=== PATIENT | male | born 1930 | race Caucasian/White ===

== ENCOUNTER 2017-06-01 09:21 | Inpatient (IN) ==
[2017-06-01] MEDS ORDERED: KETOROLAC 30 MG/1 ML VIAL IV STA (09:40)
[2017-06-01] MEDS ORDERED: VANCOMYCIN INJ 1,000 MG in SODIUM CHLORIDE 0.9% 250 ML IV STA (09:40)
[2017-06-01] MEDS ORDERED: SULFAMETHOX/TRIMETHOPRIM 800-160 MG TABLET PO STA ×2 (09:40→09:47)
--- NOTE | 2017-06-01 09:43 | Emergency Department Note ---
Arrival - Arrival Chief Complaint: Extremity Problem Stated Complaint: sent over by Dr. Shaikh III ED Nursing Triage Note: Pt sent from Wound care for admission of infected right 4th toe. Mode of Arrival: Ambulatory Limitations: No Limitations Source: Patient Time Seen by Provider: 06/01/17 09:40 - History of Present Illness HPI Narrative: This 87-year-old white male presents on referral from wound clinic for evaluation of right foot cellulitis, in particular the fourth toe of the right foot. The patient states he has had significant problems with his right foot in the last 2 months with initially an early diabetic ulcer of the volar surface the right great toe that subsequently healed but then 2 weeks later has had persistent and progressive redness and inflammation of the fourth toe on the same foot. He denies systemic chills or fever. As noted the patient is diabetic but has had no significant lability to blood sugars with average daily sugars between 90 and 110. He is otherwise in no acute medical distress. Onset (ago): week(s) (Patient presents 5 weeks post onset of symptoms) Allergies/Adverse Reactions: Allergies Allergy/AdvReac Type Severity Reaction Status Date / Time apixaban [From Eliquis] AdvReac Severe bleeding Verified 01/09/17 15:06 Review of System - Review of System 12 point system: reviewed and no additional remarkable complaints except as stated - Review of System Constitutional: Present: as per HPI Musculoskeletal: Present: as per HPI Endocrine: Present: as per HPI Medical,Surgical,& Family Hx - Medical History Cardio: History of: Cardiac Dysrhythmia (Afib Dr Keyes), Hypertension Endocrine: History of: Diabetes Mellitus (NIDDM) - Social History Smoking Status: Never smoker Exam Physical Examination: GENERAL: Well developed, well nourished elderly white male in no acute distress. HEENT: Normocephalic. No trauma. Moist mucous membranes. EOMI. PERRLA. ENT NML NECK: Supple. No adenopathy. CARDIAC: Regular. No murmurs. Heart rate 86 CHEST: Clear to auscultation. No respiratory distress. O2 sat 99% ABDOMEN: Soft. Nontender. Active bowel sounds. EXTREMITIES: No trauma. Normal ROM. No pedal edema. Right foot demonstrates inflammatory edema associated with a cellulitis with redness and warmth at the base of the toes with a swollen red warm fourth great toe. Distal pulses are poorly palpable. SKIN: No diaphoresis. No rash. NEURO: Alert. Neuro intact. No focal deficits. Vital Signs: Vital Signs Temperature 97.0 F L 06/01/17 10:18 Pulse Rate 86 06/01/17 10:18 Respiratory Rate 18 06/01/17 10:18 Blood Pressure 117/83 06/01/17 10:18 O2 Sat by Pulse Oximetry 98 06/01/17 10:05 Course - Reevaluation(s) Reevaluation #1: Discussed with patient the need for hospitalization to try to salvage the foot. - Consultations Consultation #1: Discussed with Dr. Dumont who advised admission to medicine given there is no need for immediate surgical intervention with debridement or amputation at this time. Consultation #2: Discussed with Dr. Janes Garcia who will admit the patient for further evaluation and treatment in place of Dr. Anthony Cordova. Results - Labs CBC & BMP: 06/01/17 10:14 06/01/17 10:14 Labs: I have reviewed the laboratory and noted the elevated white blood cell count, renal azotemia, and elevated C-reactive protein - Diagnostic Findings Procedure: X-ray: image reviewed by me, report reviewed by me, pending (, Septic arthritis noted) Disposition Clinical Impression: Osteomyelitis right foot/fourth digit, Septic arthritis, Diabetes Case discussed with: patient Disposition: Still a Patient Condition: Guarded Time of Disposition: 11:46
--- NOTE | 2017-06-01 10:16 | XRay Report ---
History: Foot pain Date: 06/01/2017 Study: Right foot 3 views Comparison exam: No previous similar exam There is ill-defined lytic erosion along the lateral aspect of the distal aspect of the fourth proximal phalanx and proximal aspect of the fourth middle phalanx, centered at the level of the PIP joint, compatible with osteomyelitis and probable underlying septic arthritis. There is soft tissue swelling about the forefoot. There is soft tissue ulceration and soft tissue swelling plantar to the lateral aspect of the forefoot. No radiopaque foreign body is seen. There is mild osteophyte formation of the first MTP joint and interphalangeal joint. Impression: Evidence of osteomyelitis and probable underlying septic arthritis along the lateral aspect of the right fourth digit, centered at the PIP joint level PROCEDURE INTERPRETED AT [facility] DEPARTMENT OF RADIOLOGY Final Report Signed by: Dr. Duyen Fuchs
[2017-06-01] MEDS ORDERED: KETOROLAC 30 MG/1 ML VIAL ONE (10:23)
[2017-06-01] MEDS ORDERED: SULFAMETHOX/TRIMETHOPRIM 800-160 MG TABLET ONE (10:23)
[2017-06-01] MEDS ORDERED: VANCOMYCIN 1,000 MG VIAL ONE (10:23)
[2017-06-01] MEDS ORDERED: SODIUM CHLORIDE 0.9% 250 ML IV ONE (10:24)
[2017-06-01 10:25] LABS: Basophils # 0.1 10*3/uL (0.0-0.2); Basophils % 0.5 % (0.0-0.8); Eosinophils # 0.5 10*3/uL (0.0-0.87); Eosinophils % 3.6 % (0.00-10.9); Hematocrit 41.3 VOL% (42.0-52.0); Hemoglobin 14.5 GM/DL (14.0-18.0); Immature Granulocytes % 0.5 %; Immature Granulocytes Absolute 0.06 #; Lymphocytes # 5.1 10*3/uL (1.4-4.0); Lymphocytes % 39.5 % (21.2-54.2); Mean Corpuscular HGB Conc 35.1 GM/DL (32-36); Mean Corpuscular Hemoglobin 32 PG (27-34); Monocytes # 0.7 10*3/uL (0.11-0.8); Monocytes % 5.5 % (1.7-12.7); Neutrophils # 6.5 10*3/uL (1.4-7.4); Neutrophils % 50.4 % (38.7-73.9); Platelet Count 286 T/CUMM (130-400); Red Blood Count 4.54 MC/CUMM (3.8-5.5); Red Cell Distribution Width 13.3 % (9.3-17.3); White Blood Count 12.9 T/CUMM (4-12)
[2017-06-01 10:36] LABS: PT Patient Result 10.9 SECS; Partial Thromboplastin Time 29.6 SECS (0-40)
[2017-06-01 11:03] LABS: Albumin 3.6 G/DL (3.4-5.0); Bilirubin,Total 0.7 MG/DL (0.2-1.0); Osmolality,Calculated 284.7 MOS/KG (273-304)
[2017-06-01 11:28] LABS: Sedimentation Rate-Westergren 40 MM/HR (0-20)
[2017-06-01] MEDS ORDERED: GLUCAGON 1 MG VIAL IM PRN (11:48)
[2017-06-01] MEDS ORDERED: ONDANSETRON 4 MG/2 ML VIAL IV PRN (11:48)
[2017-06-01] MEDS ORDERED: DEXTROSE 50% 25 GM/50 ML SYRINGE IV PRN (11:48)
[2017-06-01] MEDS ORDERED: SULFAMETHOX/TRIMETHOPRIM 800-160 MG TABLET PO SCH (12:00)
[2017-06-01] MEDS ORDERED: VANCOMYCIN INJ 1,000 MG in SODIUM CHLORIDE 0.9% 250 ML IV SCH (12:00)
--- NOTE | 2017-06-01 12:13 | General Surgery Consult Note ---
Assessment and Plan - Time spent with patient Time spent with patient: Greater than 30 minutes (1) Diabetes Status: Acute Assessment and plan: 87-year-old white male with history of diabetes, hypertension, A. fib not on anticoagulation admitted by Dr. Cordova with diabetic foot infection of the right fourth toe with osteomyelitis and questionable septic arthritis. Patient will be started on antibiotics and local wound care. Patient will most likely need amputation of this fourth toe. Patient's ABIs done a few months back show good distal flow for good healing. Will restart patient's home medicines except for his metformin. Since his creatinine is elevated will go ahead and hold his Lasix and lisinopril as well and avoid nephrotoxic antibiotics. Consult pharmacy to assist in medication adjustment. Dr. Cordova will be on his case and can manage this further. Dr. Dumont will see and examine patient and further recommendations to follow. Current Visit: Yes (2) Hypertension Status: Acute Current Visit: Yes (3) Atrial fibrillation Status: Acute Current Visit: Yes (4) History of GI diverticular bleed Status: Acute Current Visit: Yes (5) Osteomyelitis right fourth toe Status: Acute Current Visit: Yes (6) Diabetic foot ulcer Status: Acute Current Visit: Yes History of Present Illness Chief complaint: Right toe pain History of present illness: Mr. Verdin is a pleasant 87 year old white male with history of diabetes, hypertension, A. fib not on anticoagulation, history of GI bleed admitted by Dr. Cordova with right fourth toe infection with osteomyelitis. Patient has been seeing Dr. Mason Starks at the wound center for several months. He initially started seeing him for the right great toe and this has since healed up. He saw him approximately 3 weeks ago for the fourth toe that looked okay at that time. Dr. Mason Starks went out of town and saw the patient today for the first time in 3 weeks and he was sent to the emergency room for fourth toe infection. Patient is alert and oriented and his vital signs are stable. White count mildly elevated at 12.9, creatinine elevated at 1.9, blood sugars 144. X-ray done of the right foot shows evidence of osteomyelitis and underlying septic arthritis along the lateral aspect of the right fourth digit centered at the PIP joint level. ABIs done a few months ago show good distal flow. Patient states he had an arteriogram done and it was normal but I do not see this in his records here at [facility]. Patient has necrotic ulceration on the lateral toe with edema, cellulitis, and tenderness. He also has a small ulcer on the fifth metatarsal head on the volar aspect. Patient denies headache , chest pain, shortness of breath, abdominal pain or constipation and diarrhea. He does have some recent new onset of right foot and ankle swelling. Patient lives alone and takes care of himself and drives wherever he needs to go. Dr. Dumont has been consulted to evaluate the right fourth toe infection. Allergies Allergy/AdvReac Type Severity Reaction Status Date / Time apixaban [From Eliquis] AdvReac Severe bleeding Verified 01/09/17 15:06 Medical,Surgical,& Family Hx - Medical History Cardio: History of: Cardiac Dysrhythmia (Afib Dr Keyes), Hypertension Endocrine: History of: Diabetes Mellitus (NIDDM) - Surgical History HEENT Surgeries: Surgical HX of: Eye Surgery, Tonsilectomy & Adenoidectomy Abdominal Surgeries: Surgical HX of: Appendectomy Orthopedic Surgeries: Surgical HX of;: Orthopedic Surgery - Family History Family History: Reports;: Family Heart Disease - Social History Smoking Status: Never smoker Frequency of Alcohol Use: None Type of Drug Use: None Marital Status: Lives With:: Alone Functional capacity: independent ambulation Review of systems: A complete 10 system review of systems was obtained and pertinent positives and negatives per HPI Exam - Constitutional Vitals: Period Temp Pulse Resp BP Sys/Masters Pulse Ox Last 24 Hr 97.0 F-97.0 F 82-86 18-24 115-117/69-83 98-99 Exam: Constitutional System: No distress. No tremulousness. Head: Normocephalic, atraumatic. Ears, Nose and Throat System: No evidence of Otitis or Mastoiditis. No epistaxis or discharge Eyes System: Pupils equal, round, and reactive. Extraocular muscles intact. Neck: Supple, without adenopathy, No jugular venous distention. No thyromegaly, neck mass, or prior surgery apparent. Respiratory System: Chest clear to auscultation. Cardiovascular System: Heart with irregularly irregular rate and rhythm. No murmur. GI System: Abdomen soft, nontender. Normo active bowel sounds present. Musculoskeletal System: limbs with mild pedal edema right ankle/foot, necrotic ulcer lateral fourth toe with edema, cellulitis, tenderness. Small ulcer volar surface of fifth metatarsal head diminished distal pulses. Neurological System: No discernable sensory deficit. No aphasia Psychiatric System: Conversation is rational Results - Labs CBC & BMP: 06/01/17 10:14 06/01/17 10:14 Lab Results: I have reviewed the past 24 hour labs - Diagnostic Findings Procedure: X-ray: report reviewed by me (Right foot x-ray shows evidence of osteomyelitis and probable underlying septic arthritis along the lateral aspect of the right fourth digit centered at the PIP joint level)
[2017-06-01] MEDS ORDERED: DILTIAZEM HCL 240 MG PO SCH (12:30)
[2017-06-01] MEDS ORDERED: LACTATED RINGERS 500 ML IV ONE (12:37)
--- NOTE | 2017-06-01 12:51 | Family Practice History&Phys ---
Assessment and Plan (1) Osteomyelitis right fourth toe Status: Acute Assessment and plan: 06/01/2017: Patient will be started on IV Teflaro. Surgery will be consulted. Current Visit: Yes History of Present Illness Chief complaint: Right foot pain and redness History of present illness: Mr. Verdin is a 87 year old male Patient 87-year-old white male transferred to the emergency room from the wound care clinic for further evaluation of right foot infection. Patient states he started having increased redness swelling and pain in his right fourth toe beginning about 2-3 weeks ago. He denies any trauma to the area. He was seen in the emergency room by Dr. Carty and found to have evidence of osteomyelitis on pain x-rays. She had erythema of the right fourth toe and erythema to the dorsum of the right foot. There is no lymphangitic streaking proximal to this however. Patient states she does have decreased sensation in the foot but it certainly painful when he walks. He denies any pain elsewhere at present. Home Medications Medication Instructions Recorded Confirmed Type Aspirin EC Tab 81 mg PO QAM 06/01/17 06/01/17 History Atorvastatin [Lipitor] 10 mg PO QAM 06/01/17 06/01/17 History Furosemide [Furosemide] 20 mg PO QAM 06/01/17 06/01/17 History Glyburide/Metformin HCl 1 tablet PO BID W/MEALS 06/01/17 06/01/17 History [Glyburide-Metformin 5-500 mg] Iron 18 mg PO QAM 06/01/17 06/01/17 History Lisinopril/Hctz 20-25 [Prinzide 1 tablet PO QAM 06/01/17 06/01/17 History 20-25] Metoprolol Tartrate [Metoprolol 50 mg PO BID 06/01/17 06/01/17 History Tartrate] Multivit-Mins/Iron/Folic/Lycop 1 each PO QAM 06/01/17 06/01/17 History [Centrum Men's Tablet] dilTIAZem HCl [Diltiazem ER (24 240 mg PO QAM 06/01/17 06/01/17 History hr)] Allergies Allergy/AdvReac Type Severity Reaction Status Date / Time apixaban [From Eliquis] AdvReac Severe bleeding Verified 01/09/17 15:06 - Constitutional Constitutional: Absent: chills, fever(s), weakness - EENT Eyes: Absent: blurry vision, loss of vision Ears: Absent: decreased hearing, ear pain Nose, mouth and throat: Absent: nasal congestion, sinus pressure, sore throat - Cardiovascular Cardiovascular: Absent: chest pain at rest, chest pain with activity, orthopnea , palpitations, PND - Respiratory Respiratory: Absent: cough, dyspnea, wheezing - Gastrointestinal Gastrointestinal: Absent: abdominal pain, diarrhea, hematemesis, hematochezia, melena, nausea, vomiting - Genitourinary Genitourinary: Absent: difficulty urinating, hematuria, urinary frequency - Musculoskeletal Musculoskeletal: Present: as per HPI, arthralgias. Absent: back pain - Neurological Neurological: Absent: confusion, dizziness, numbness, paresthesias - Psychiatric Psychiatric: Absent: anxiety, confusion, depression - Endocrine Endocrine: Absent: fatigue, polydipsia, polyphagia - Hematologic/Lymphatic Hematologic/Lymphatic: Absent: easy bleeding, easy bruising Medical,Surgical,& Family Hx - Medical History Cardio: History of: Cardiac Dysrhythmia (Afib Dr Keyes), Hypertension Endocrine: History of: Diabetes Mellitus (NIDDM) - Surgical History HEENT Surgeries: Surgical HX of: Eye Surgery, Tonsilectomy & Adenoidectomy Abdominal Surgeries: Surgical HX of: Appendectomy Orthopedic Surgeries: Surgical HX of;: Orthopedic Surgery - Family History Family History: Reports;: Family Heart Disease - Social History Smoking Status: Never smoker Frequency of Alcohol Use: None Type of Drug Use: None Exam - Constitutional Vitals: Period Temp Pulse Resp BP Sys/Masters Pulse Ox Last 24 Hr 97.0 F-97.0 F 79-87 18-25 113-137/69-83 94-99 Exam: General: Objective patient is a well-developed white male in no acute distress. Patient is articulate and able to give an excellent history. HEENT: Pupils equal and reactive to light. Patent nares and airway Neck: No meningismus, adenopathy, thyromegaly. There are no auscultated carotid bruits. Cardiovascular: Regular rhythm with occasional ectopy. No murmurs or gallops Chest: Clear to auscultation without rales rhonchi wheezes. Abdomen: Soft nontender to palpation No masses, rebound, guarding or tenderness. Neuro: Cranial nerves intact and DTRs and strength symmetric in all extremities. Dermatologic: No evidence of abnormal lesions or masses. Musculoskeletal: There is erythema, swelling and some tenderness to the right fourth toe on the dorsum of the right foot. There is some fluctuance along the lateral aspect of the right fourth toe. Extremities: There is no calf swelling or tenderness. Results - Labs CBC & BMP: 06/01/17 10:14 06/01/17 10:14 Lab Results: I have reviewed the past 24 hour labs - Diagnostic Findings Procedure: X-ray: report reviewed by me (Evidence of osteomyelitis right fourth toe)
[2017-06-01] MEDS ORDERED: PIPERACILLIN/TAZOBACTAM 3,375 MG in SODIUM CHLORIDE 0.9% 100 ML IV SCH (13:00)
--- NOTE | 2017-06-01 13:03 | EKG Report ---
Stationary ECG Study [facility] ER Test Date: 06/01/2017 1:01:53 PM Pat Name: OLINDA LIM Department: Room: [facility] Gender: M [employer]: : [id number] Requested by: Immanuel Gonzalez Order Number: [id number] Reading MD: CARMINA CUNNINGHAM Intervals Ward Rate: 74 P: 999 DC: 0 QRS: 106 QRSD: 117 T: -22 QT: 416 QTc: 443 Interpretive Statements ATRIAL FIBRILLATION WITH ABERRANT CONDUCTION OR VENTRICULAR PREMATURE COMPLEXES MARKED RIGHT AXIS DEVIATION INCOMPLETE RIGHT BUNDLE BRANCH BLOCK Electronically Signed On 06-04-17 18:34:33 CDT by CARMINA CUNNINGHAM [email or web address]
[2017-06-01] MEDS: MULTIVITAMIN (CENTRUM) TABLET PO SCH (14:54)
[2017-06-01] MEDS: ASPIRIN EC 81 MG TABLET PO SCH (14:54)
[2017-06-01] MEDS: CEFTAROLINE 400 MG in SODIUM CHLORIDE 0.9% 100 ML IV SCH (15:53)
[2017-06-01] MEDS: glyBURIDE/METFORMIN 5-500 MG TABLET PO SCH (17:01)
[2017-06-01] MEDS: INSULIN REGULAR 100 UNIT/ML SUBCUT SCH ×2 (17:01→20:52)
[2017-06-01] MEDS: METOPROLOL TARTRATE 50 MG TABLET PO SCH (20:52)
[2017-06-01] MEDS: ATORVASTATIN 10 MG TABLET PO SCH (20:52)
[2017-06-02] MEDS: CEFTAROLINE 400 MG in SODIUM CHLORIDE 0.9% 100 ML IV SCH ×2 (03:56→16:29)
--- NOTE | 2017-06-02 05:50 | Family Practice Progress Note ---
Family Practice - PN: Subj Interval history: Patient states he had a good night and not have any problems except his foot pain. Patient's EKG in the emergency room showed atrial fibrillation with controlled rate. He had some bradycardia and atrial flutter this morning the heart rate dropping into the 40s. I am going to ask cardiology to see him. Chest x-ray will also be ordered. Patient is scheduled for amputation and debridement of the right fourth toe. Exam (Progress Note) - Constitutional Vitals: Period Temp Pulse Resp BP Sys/Masters Pulse Ox Last 24 Hr 97.0 F-98.0 F 48-87 16-25 113-137/66-83 90-100 Exam: Objective well-developed gentleman no acute distress. Is awake and alert. He denies any problems other than his foot Cardiovascular: Heart rates regular without murmurs or gallops Respiratory: Lungs clear to auscultation bilaterally Extremities: Patient has erythema of dorsum of the right foot and fourth toe. Results - Labs CBC & BMP: 06/01/17 10:14 06/01/17 10:14 Lab Results: I have reviewed the past 24 hour labs - EKG EKG shows: atrial fibrillation Assessment and Plan (1) Osteomyelitis right fourth toe Status: Acute Assessment and plan: 06/01/2017: Patient will be started on IV Teflaro. Surgery will be consulted. 06/02/2017: Patient scheduled for surgery today. Current Visit: Yes (2) Atrial fibrillation Status: Acute Assessment and plan: 06/02/2017, will consult cardiology preop Current Visit: Yes
--- NOTE | 2017-06-02 06:54 | XRay Report ---
Exam: XR chest 1V portable Date: 06/02/2017 5:17 AM Indication: Respiratory preop evaluation of the chest Comparison: 11/30/2016 Technical: AP Findings: Mild cardiomegaly with ASVD. External cardiac leads are present. Mediastinum is demonstrated with slight prominence in the hilar regions left greater than right this appears similar to previous study from previous exam dating back to 07/28/2019. No pneumothorax. Minimal thickening of the minor fissure. No obvious consolidating infiltrates or effusions. Impression: 1. Cardiomegaly with out overt decompensation 2. Scarring and/or nodularity in the perihilar regions left greater than right. Unchanged for several years PROCEDURE INTERPRETED AT [facility] DEPARTMENT OF RADIOLOGY Final Report Signed by: Dr. Fabian Cesar
[2017-06-02 07:12] LABS: Basophils # 0.1 10*3/uL (0.0-0.2); Basophils % 0.5 % (0.0-0.8); Eosinophils # 0.6 10*3/uL (0.0-0.87); Eosinophils % 5.3 % (0.00-10.9); Hematocrit 38.7 VOL% (42.0-52.0); Hemoglobin 13.4 GM/DL (14.0-18.0); Immature Granulocytes % 0.4 %; Immature Granulocytes Absolute 0.05 #; Lymphocytes # 5.5 10*3/uL (1.4-4.0); Lymphocytes % 45.4 % (21.2-54.2); Mean Corpuscular HGB Conc 34.6 GM/DL (32-36); Mean Corpuscular Hemoglobin 31 PG (27-34); Mean Corpuscular Volume 90.6 FL (87-102); Mean Platelet Volume 10.4 FL (9.6-12.0); Monocytes # 0.6 10*3/uL (0.11-0.8); Monocytes % 5.1 % (1.7-12.7); Neutrophils # 5.2 10*3/uL (1.4-7.4); Neutrophils % 43.3 % (38.7-73.9); Platelet Count 291 T/CUMM (130-400); Red Blood Count 4.27 MC/CUMM (3.8-5.5); Red Cell Distribution Width 13.4 % (9.3-17.3)
[2017-06-02 07:44] LABS: Albumin 3.1 G/DL (3.4-5.0); Bilirubin,Total 0.5 MG/DL (0.2-1.0); Calcium 8.7 MG/DL (8.5-10.1); Osmolality,Calculated 286.4 MOS/KG (273-304); Potassium 3.7 MMOL/L (3.5-5.1); Total Protein 6.3 G/DL (6.4-8.3)
[2017-06-02] MEDS ORDERED: glyBURIDE/METFORMIN 5-500 MG TABLET PO SCH (08:00)
[2017-06-02] MEDS: INSULIN REGULAR 100 UNIT/ML SUBCUT SCH ×4 (08:24→20:23)
[2017-06-02] MEDS: glyBURIDE/METFORMIN 5-500 MG TABLET PO SCH ×2 (08:24→16:30)
[2017-06-02] MEDS: FUROSEMIDE 20 MG TABLET PO SCH (08:25)
[2017-06-02] MEDS: DILTIAZEM CD 240 MG CAPSULE PO SCH (08:25)
[2017-06-02] MEDS: METOPROLOL TARTRATE 50 MG TABLET PO SCH ×2 (08:25→20:24)
[2017-06-02] MEDS: LISINOPRIL/HCTZ 20-25 MG TABLET PO SCH (08:25)
[2017-06-02] MEDS: FERROUS SULFATE ER 140 MG TABLET PO SCH (08:25)
[2017-06-02] MEDS: MULTIVITAMIN (CENTRUM) TABLET PO SCH (08:25)
[2017-06-02] MEDS: ASPIRIN EC 81 MG TABLET PO SCH (08:25)
[2017-06-02] MEDS: PANTOPRAZOLE 40 MG TABLET PO SCH (08:25)
--- NOTE | 2017-06-02 08:29 | Cardiology Consult Note ---
Eriberto Abad April, RN, am scribing for, and in the presence of, Randy Santana MD 08:29. Assessment and Plan - Time spent with patient Time spent with patient: Greater than 30 minutes (Due to assessment, planning, documentation, medication review) (1) Atrial fibrillation Status: Acute Assessment and plan: He is on Lopressor and Cardizem for rate control. He is not anticoagulated due to history of GI bleed. He does take a baby aspirin every day. Current Visit: Yes (2) Diabetes Status: Chronic Assessment and plan: Family medicine is following. Current Visit: Yes (3) History of GI diverticular bleed Status: Chronic Assessment and plan: He had a history of GI bleed while on anticoagulation with atrial fibrillation. He denies any known bleeding at this time. Current Visit: No (4) Hypertension Status: Chronic Assessment and plan: His blood pressures been stable, will continue to monitor. Current Visit: Yes (5) Osteomyelitis right fourth toe Status: Acute Assessment and plan: Dr. Dumont is following. Surgery has been scheduled for today. Current Visit: Yes History of Present Illness - Data of Consult Patient: known to practice within the last 3 years Consult date: 06/02/17 Requesting Physician: Janes Garcia Primary care physician: Amandeep Cordova - Consult Narrative Reason for consult: Bradycardia History of present illness: [employer] Chief: Dr. Keyes PCP: Dr. Cordova Mr. Verdin is a 87 year old male who is routinely followed by Dr. Keyes with a history of paroxysmal atrial fibrillation, hypertension, NIDDM, mitral regurgitation, and GI bleed. 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 He does take a baby aspirin every day. Echo done in Dr. Keyes's office November 30, 2016 with ejection fraction of 35% and moderate mitral regurgitation. Stress test done July 25, 2016 was negative. Surgical history includes bilateral cataracts , appendectomy, and tonsillectomy. He denies any known family history. He reports he is a lifetime non-smoker. Mr. Verdin was transferred to the emergency room from the wound care clinic for further evaluation of right foot infection June 01. Dr. Dumont saw him in consultation and has a right fourth toe amputation scheduled for today (June 02 ). EKG on admission showed atrial fibrillation with PVCs, heart rate of 74. Last night he had an episode of atrial fibrillation with heart rates in the 40s , and cardiology has been asked to evaluate. lunchroom monitor currently shows atrial fibrillation with heart rates in the 70s. He was unaware that his heart rate was low and had no symptoms during that time. He denies having had any chest pain, shortness of breath, palpitations, or dizziness. He denies any episodes of syncope or near syncope. Mr. Verdin is in with peripheral vascular disease and is for amputation of his fourth toe. He has had no significant change in his symptoms. He has chronic atrial fibrillation and is not a candidate for anticoagulation because of a history of GI bleeding. He has a good candidate for surgery and our plan will be to clear him for her anticipated surgery. I have discussed in detail the particulars of this case and I have examined the patient and reviewed the patient's chart both current and old. I was directly involved in the patient's evaluation and management and I completely agree with Maggy Wei RN regarding this patient's evaluation and treatment plan. CC: Amandeep Cordova, DO - Home Medications and Allergies Home Medications: Home Medications Medication Instructions Recorded Confirmed Type Aspirin EC Tab 81 mg PO QAM 06/01/17 06/01/17 History Atorvastatin [Lipitor] 10 mg PO QAM 06/01/17 06/01/17 History Cyanocobalamin (Vitamin B-12) 500 mcg PO DAILY 06/01/17 06/01/17 History [Vitamin B-12] Furosemide [Furosemide] 20 mg PO QAM 06/01/17 06/01/17 History Glyburide/Metformin HCl 1 tablet PO BID W/MEALS 06/01/17 06/01/17 History [Glyburide-Metformin 5-500 mg] Iron 18 mg PO QAM 06/01/17 06/01/17 History Lisinopril/Hctz 20-25 [Prinzide 1 tablet PO QAM 06/01/17 06/01/17 History 20-25] Metoprolol Tartrate [Metoprolol 50 mg PO BID 06/01/17 06/01/17 History Tartrate] Multivit-Mins/Iron/Folic/Lycop 1 each PO QAM 06/01/17 06/01/17 History [Centrum Men's Tablet] dilTIAZem HCl [Diltiazem ER (24 240 mg PO QAM 06/01/17 06/01/17 History hr)] Allergies/Adverse Reactions: Allergies Allergy/AdvReac Type Severity Reaction Status Date / Time apixaban [From Eliquis] AdvReac Severe bleeding Verified 01/09/17 15:06 - Constitutional Constitutional: Present: as per HPI - EENT Eyes: Present: requires corrective lense. Absent: blurry vision Ears: Absent: ear pain, tinnitus Nose, mouth and throat: Absent: dysphagia, epistaxis, headache(s), neck pain - Cardiovascular Cardiovascular: Absent: chest pain at rest, chest pain with activity, diaphoresis, dyspnea, dyspnea on exertion, edema, radiating jaw, neck or arm pain, lightheadedness, orthopnea, palpitations - Respiratory Respiratory: Absent: cough, dyspnea, hemoptysis, dyspnea on exertion, wheezing - Gastrointestinal Gastrointestinal: Absent: abdominal pain, constipation, diarrhea, hematemesis, hematochezia, melena, nausea, vomiting - Genitourinary Genitourinary: Absent: dysuria, hematuria - Musculoskeletal Musculoskeletal: Present: limited range of motion, muscle weakness. Absent: back pain - Neurological Neurological: Absent: confusion, dizziness, frequent falls, headache(s), syncope - Psychiatric Psychiatric: Absent: confusion, depression - Endocrine Endocrine: Absent: fatigue - Hematologic/Lymphatic Hematologic/Lymphatic: Present: easy bruising. Absent: easy bleeding Medical,Surgical,& Family Hx - Medical History Cardio: History of: Cardiac Dysrhythmia (Afib ), Hypertension Endocrine: History of: Diabetes Mellitus (NIDDM) - Surgical History HEENT Surgeries: Surgical HX of: Eye Surgery (Lateral cataracts), Tonsilectomy & Adenoidectomy Abdominal Surgeries: Surgical HX of: Appendectomy - Family History Family History: noncontributory (Patient denies any family history) - Social History Smoking Status: Never smoker Have you smoked in the last 12 months: No Frequency of Alcohol Use: None Type of Drug Use: None Lives With:: Alone Functional capacity: independent ambulation Physical Examination Vital Signs Temp Pulse Resp BP Pulse Ox 97.0 F L 86 18 117/83 99 06/01/17 09:22 06/01/17 09:22 06/01/17 09:22 06/01/17 09:22 06/01/17 09:22 General: Present: Appears Well, No Apparent Distress HEENT: Present: PERRL, Mucus Membranes Moist Neck: Present: Supple Neck, Midline Trachea, No Bruit Cardiac: Present: Irregularly Regular, No Murmur, Bradycardia Lungs: Present: Normal Breath Sounds, No Wheeze, Rales, Rhonchi. Absent: Oxygen Neuro: Absent: Resting Tremor, Essential Tremor Abdomen: Present: Soft, Active Bowel Sounds, Non-Tender. Absent: Distended Skin: Present: Bruising, Other (Erythema and tenderness to right foot). Absent : Rash Extremities: Present: Edema (Trace to bilateral lower extremities) Result/EKG - Labs CBC & BMP: 06/02/17 06:41 06/02/17 06:41 Lab Results: I have reviewed the past 24 hour labs Labs: Laboratory Results - last 24 hr 06/01/17 06/01/17 06/01/17 10:14 10:14 10:14 WBC 12.9 H RBC 4.54 Hgb 14.5 Hct 41.3 L MCV 91.0 MCH 32 MCHC 35.1 RDW 13.3 Plt Count 286 MPV 10.0 Neut % (Auto) 50.4 Lymph % (Auto) 39.5 [place] % (Auto) 5.5 Eos % (Auto) 3.6 Baso % (Auto) 0.5 Neut # (Auto) 6.5 Lymph # (Auto) 5.1 H [place] # (Auto) 0.7 Eos # (Auto) 0.5 Baso # (Auto) 0.1 Immature Gran % 0.5 Nucleated RBC % 0.0 Immature Gran # 0.06 Nucleated RBCs # 0.00 Immature Plt Fraction 0.0 ESR Westergren 40 H INR 1.0 PT Patient/Control Mix 10.9 Circ Anticoag PTT 29.6 Sodium 138 Potassium 4.0 Chloride 103 Carbon Dioxide 27 Anion Gap 12.0 BUN 31 H Creatinine 1.90 H GFR Calculation 39 BUN/Creatinine Ratio 16.00 Glucose 144 H POC Glucose Calculated Osmolality 284.7 Calcium 9.0 Total Bilirubin 0.70 AST 20 ALT 18 Alkaline Phosphatase 80 C-Reactive Protein 5.48 H Total Protein 7.0 Albumin 3.6 Globulin 3.4 Albumin/Globulin Ratio 1.0 L 06/01/17 06/01/17 06/01/17 13:42 16:43 20:49 WBC RBC Hgb Hct MCV MCH MCHC RDW Plt Count MPV Neut % (Auto) Lymph % (Auto) [place] % (Auto) Eos % (Auto) Baso % (Auto) Neut # (Auto) Lymph # (Auto) [place] # (Auto) Eos # (Auto) Baso # (Auto) Immature Gran % Nucleated RBC % Immature Gran # Nucleated RBCs # Immature Plt Fraction ESR Westergren INR PT Patient/Control Mix Circ Anticoag PTT Sodium Potassium Chloride Carbon Dioxide Anion Gap BUN Creatinine GFR Calculation BUN/Creatinine Ratio Glucose POC Glucose 122 H 89 130 H Calculated Osmolality Calcium Total Bilirubin AST ALT Alkaline Phosphatase C-Reactive Protein Total Protein Albumin Globulin Albumin/Globulin Ratio 06/02/17 06:41 WBC 12.0 RBC 4.27 Hgb 13.4 L Hct 38.7 L MCV 90.6 MCH 31 MCHC 34.6 RDW 13.4 Plt Count 291 MPV 10.4 Neut % (Auto) 43.3 Lymph % (Auto) 45.4 [place] % (Auto) 5.1 Eos % (Auto) 5.3 Baso % (Auto) 0.5 Neut # (Auto) 5.2 Lymph # (Auto) 5.5 H [place] # (Auto) 0.6 Eos # (Auto) 0.6 Baso # (Auto) 0.1 Immature Gran % 0.4 Nucleated RBC % 0.0 Immature Gran # 0.05 Nucleated RBCs # 0.00 Immature Plt Fraction 0.0 ESR Westergren INR PT Patient/Control Mix Circ Anticoag PTT Sodium Potassium Chloride Carbon Dioxide Anion Gap BUN Creatinine GFR Calculation BUN/Creatinine Ratio Glucose POC Glucose Calculated Osmolality Calcium Total Bilirubin AST ALT Alkaline Phosphatase C-Reactive Protein Total Protein Albumin Globulin Albumin/Globulin Ratio - Diagnostic Findings Procedure: Chest x-ray: report reviewed by ct - EKG EKG results: interpreted by me EKG shows: atrial fibrillation Max Abad Wesley, MD, personally performed the services described in this documentation, ascribed by Maggy Wei RN in my presence, and it is both accurate and complete 829 .
[2017-06-02] MEDS ORDERED: LISINOPRIL/HCTZ 20-25 MG TABLET PO SCH (09:00)
[2017-06-02] MEDS ORDERED: BUPIVACAINE 0.25% 50 ML VIAL ONE (09:43)
[2017-06-02] MEDS ORDERED: ONDANSETRON 4 MG/2 ML VIAL ONE (10:10)
[2017-06-02] MEDS ORDERED: METOPROLOL TARTRATE 5 MG/5 ML VIAL IV ONE (10:10)
[2017-06-02] MEDS ORDERED: LIDOCAINE 1% 5 ML VIAL ONE (10:10)
[2017-06-02] MEDS ORDERED: PROPOFOL 200 MG/20 ML VIAL IV ONE (10:10)
--- NOTE | 2017-06-02 10:55 | Operative Note ---
Date of procedure: 06/02/17 Pre-op diagnosis: Right fourth toe wet gangrene with osteomyelitis and septic arthritis. Post-op diagnosis: same Procedure: Preoperative diagnosis Right fourth toe septic arthritis with osteomyelitis and pathologic fracture Postoperative diagnosis Same Procedures performed Right fourth toe ray amputation Findings There was healthy tissue at the metatarsal head which was rongeured back to remove the joint capsule. There is no further infection but there was some pus that the open wound and this was cultured and sent to the lab. Complications None apparent Specimen Right fourth toe Cultures from right fourth toe abscess Blood loss 10 mL Indications Right fourth toe osteomyelitis with septic arthritis and open wound. The risks , benefits, and alternatives of the operation were discussed with the patient and family. The risk of phantom pain and need for higher amputation were discussed in detail and elected to proceed. Their questions were answered. Description of procedure Patient was taken to the operating room and transferred to the operating table in the supine position. The right leg was prepped with Betadine and draped sterilely. Preoperative antibiotics were administered and timeout was performed. Local anesthetic was administered around the right toe. An elliptical skin incision was then made with a 15 blade scalpel and the toe was amputated at the metatarsal phalangeal joint. There was healthy tissue at this location. A rongeur was used to debride the bone back past the capsule of the metatarsal head. Bleeding was controlled with electrocautery but there was adequate bleeding for wound healing in my opinion. The foot was dressed with dry gauze dressing between the toes, cast padding, and Coban. The patient was awakened from anesthesia and transferred to recovery. Postoperative plan Continue wound care and antibiotics Follow-up cultures Anesthesia: MAC, local Surgeon / Physician: Durga Dumont Estimated blood loss: minimal Specimens: other (cultures right fourth toe) Condition: stable Disposition: PACU Results - Labs CBC & BMP: 06/02/17 06:41 06/02/17 06:41 Discharge Plan - Discharge Medications No Action Lisinopril/Hctz 20-25 [Prinzide 20-25] 1 tablet PO QAM Furosemide [Furosemide] 20 mg PO QAM Aspirin EC Tab 81 mg PO QAM Metoprolol Tartrate [Metoprolol Tartrate] 50 mg PO BID Atorvastatin [Lipitor] 10 mg PO QAM Iron 18 mg PO QAM Multivit-Mins/Iron/Folic/Lycop [Centrum Men's Tablet] 1 each PO QAM Glyburide/Metformin HCl [Glyburide-Metformin 5-500 mg] 1 tablet PO BID W/ MEALS dilTIAZem HCl [Diltiazem ER (24 hr)] 240 mg PO QAM Cyanocobalamin (Vitamin B-12) [Vitamin B-12] 500 mcg PO DAILY - Follow Up or Referral - Forms/Instructions
[2017-06-02] MEDS ORDERED: SODIUM CHLORIDE 0.9% 100 ML IV ONE (11:01)
[2017-06-02] MEDS ORDERED: fentaNYL 100 MCG/2 ML VIAL ONE (11:01)
--- NOTE | 2017-06-02 12:24 | Anesthesia Post-Op ---
Anesthesia Post OP - Post Ansesthetic Evaluation Patient seen in post op: Yes Resp: within normal limits CV: within normal limits Mental: within normal limits Temp: within normal limits Pgem-Au-Ircewpatn: within normal limits Nausea and Vomiting: within normal limits Pain: within normal limits
[2017-06-02] MEDS: ATORVASTATIN 10 MG TABLET PO SCH (20:24)
[2017-06-03] MEDS: MORPHINE 2 MG/1 ML SYRINGE IV PRN ×2 (01:17→16:07)
[2017-06-03] MEDS: CEFTAROLINE 400 MG in SODIUM CHLORIDE 0.9% 100 ML IV SCH ×2 (03:53→16:07)
[2017-06-03] MEDS: DILTIAZEM CD 240 MG CAPSULE PO SCH (08:27)
[2017-06-03] MEDS: LISINOPRIL/HCTZ 20-25 MG TABLET PO SCH (08:28)
[2017-06-03] MEDS: METOPROLOL TARTRATE 50 MG TABLET PO SCH ×2 (08:28→21:14)
[2017-06-03] MEDS: FERROUS SULFATE ER 140 MG TABLET PO SCH (08:28)
[2017-06-03] MEDS: MULTIVITAMIN (CENTRUM) TABLET PO SCH (08:28)
[2017-06-03] MEDS: PANTOPRAZOLE 40 MG TABLET PO SCH (08:28)
[2017-06-03] MEDS: ASPIRIN EC 81 MG TABLET PO SCH (08:28)
[2017-06-03] MEDS: glyBURIDE/METFORMIN 5-500 MG TABLET PO SCH ×2 (08:28→16:07)
[2017-06-03] MEDS: FUROSEMIDE 20 MG TABLET PO SCH (08:28)
[2017-06-03] MEDS: INSULIN REGULAR 100 UNIT/ML SUBCUT SCH ×4 (08:29→21:43)
--- NOTE | 2017-06-03 08:43 | Cardiology Progress Note ---
Assessment and Plan (1) Atrial fibrillation Status: Acute Assessment and plan: He is on Lopressor and Cardizem for rate control. He is not anticoagulated due to history of GI bleed. He does take a baby aspirin every day. Current Visit: Yes (2) Diabetes Status: Chronic Assessment and plan: Family medicine is following. Current Visit: Yes (3) History of GI diverticular bleed Status: Chronic Assessment and plan: He had a history of GI bleed while on anticoagulation with atrial fibrillation. He denies any known bleeding at this time. Current Visit: No (4) Hypertension Status: Chronic Assessment and plan: His blood pressures been stable, will continue to monitor. Current Visit: Yes (5) Osteomyelitis right fourth toe Status: Acute Assessment and plan: Dr. Dumont is following. Surgery has been scheduled for today. Current Visit: Yes Cardiology - PN: Subj Interval history: Patient is stable this morning. He has a history of hypertension mitral insufficiency history of GI bleeding paroxysmal atrial fibrillation. He is in atrial fibrillation this morning and is stable otherwise. He did have some problems with urinary retention requiring a Hyman catheter last night which resolved the issue. He feels well this morning and is otherwise without complaints. Exam (Progress Note) - Constitutional Vitals: Period Temp Pulse Resp BP Sys/Masters Pulse Ox Last 24 Hr 97.2 F-98.0 F 69-115 16-20 111-229/64-103 92-98 Exam: General:no acute distress. alert and oriented, mood and affect are normal HEENT: no new lesions, sclerae are clear, mouth and pharynx benign Neck: supple, trachea midline, no JVD noted Lungs: no rales ronchi or wheeze is noted. pt comfortable without accesory muscle use to assist with breathing CV: Irregularly irregular RR no murmur rub or gallop is noted. Abd: soft and nontender, BSNA, no masses. Ext: no cyanosis, clubbing or edema Neuro: grossly intact without focal neurologic deficit. Result/EKG - Labs CBC & BMP: 06/02/17 06:41 06/02/17 06:41 Labs: Laboratory Results - last 24 hr 06/02/17 06/02/17 06/02/17 06:59 11:45 15:50 POC Glucose 131 H 142 H 154 H 06/02/17 20:07 POC Glucose 130 H
--- NOTE | 2017-06-03 10:32 | Event Note ---
Patient reports he is doing well. He has no complaints and says his foot feels better since surgery. Right fourth toe amputation site is clean. There is a very small arterial medially in the wound that was bleeding. The packing was a little bloody but the outer bandage look good. I repacked it hopefully this will stop bleeding. If not will ligate the small arterial. Continue local wound care.
--- NOTE | 2017-06-03 13:44 | Internal Med Progress Note ---
Assessment and Plan (1) Atrial fibrillation Status: Chronic Current Visit: Yes Qualifiers: Atrial fibrillation type: chronic Qualified Code(s): I48.2 - Chronic atrial fibrillation (2) Osteomyelitis right fourth toe Status: Acute Current Visit: Yes (3) Diabetes Status: Chronic Current Visit: Yes Qualifiers: Diabetes mellitus type: type 2 Diabetes mellitus complication status: with skin complications Diabetes mellitus complication detail: with foot ulcer Diabetes mellitus senior care insulin use: without senior care use Qualified Code( s): E11.621 - Type 2 diabetes mellitus with foot ulcer; L97.509 - Non-pressure chronic ulcer of other part of unspecified foot with unspecified severity Internal Medicine - PN: Subj Interval history: This is an 87 year old male with history of DM, HTN, chronic atrial fibrillation , who presented to ER with infected right 4th toe. He was found to have osteomyelitis and is now status post amputation of that toe. He is doing well, and denied pain when seen. Exam (Progress Note) - Constitutional Vitals: Period Temp Pulse Resp BP Sys/Masters Pulse Ox Last 24 Hr 97.2 F-98.1 F 77-115 16-20 125-159/75-103 92-98 General appearance: no acute distress - Head Head exam: Present: normocephalic - Eye Eye exam: Present: EOMI - Respiratory Respiratory exam: Present: clear to auscultation bilaterally - Cardiovascular Cardiovascular exam: Present: irregular rhythm - GI/Abdominal GI/Abdominal exam: Present: normal bowel sounds, soft. Absent: tenderness - Extremities Exam Extremities exam: Absent: edema - Neurological Exam Neurological exam: Present: alert, oriented X3 - Psychiatric Psychiatric exam: Present: normal mood - Skin Skin exam: Present: warm, dry Results - Labs CBC & BMP: 06/02/17 06:41 06/02/17 06:41 - EKG EKG shows: atrial fibrillation - Diagnostic Findings Procedure: Chest x-ray: report reviewed by me
[2017-06-03] MEDS: ATORVASTATIN 10 MG TABLET PO SCH (21:14)
[2017-06-04] MEDS: CEFTAROLINE 400 MG in SODIUM CHLORIDE 0.9% 100 ML IV SCH ×2 (02:40→14:40)
[2017-06-04 07:42] LABS: Calcium 8.9 MG/DL (8.5-10.1); Osmolality,Calculated 277.5 MOS/KG (273-304); Potassium 4.1 MMOL/L (3.5-5.1)
[2017-06-04] MEDS: INSULIN REGULAR 100 UNIT/ML SUBCUT SCH ×4 (07:57→21:34)
--- NOTE | 2017-06-04 08:09 | Cardiology Progress Note ---
Assessment and Plan (1) Atrial fibrillation Status: Chronic Assessment and plan: He is on Lopressor and Cardizem for rate control. He is not anticoagulated due to history of GI bleed. He does take a baby aspirin every day. 06/04: The patient continues stable with a stable rhythm. He is not anticoagulated related to history of GI bleed. Current Visit: Yes Qualifiers: Atrial fibrillation type: chronic Qualified Code(s): I48.2 - Chronic atrial fibrillation (2) Diabetes Status: Chronic Assessment and plan: Family medicine is following. Current Visit: Yes Qualifiers: Diabetes mellitus type: type 2 Diabetes mellitus complication status: with skin complications Diabetes mellitus complication detail: with foot ulcer Diabetes mellitus oysterman insulin use: without oysterman use Qualified Code( s): E11.621 - Type 2 diabetes mellitus with foot ulcer; L97.509 - Non-pressure chronic ulcer of other part of unspecified foot with unspecified severity (3) History of GI diverticular bleed Status: Chronic Assessment and plan: He had a history of GI bleed while on anticoagulation with atrial fibrillation. He denies any known bleeding at this time. Current Visit: No (4) Hypertension Status: Chronic Assessment and plan: His blood pressures been stable, will continue to monitor. Current Visit: No (5) Osteomyelitis right fourth toe Status: Acute Assessment and plan: Dr. Dumont is following. Surgery has been scheduled for today. Current Visit: Yes Cardiology - PN: Subj Interval history: Patient is stable and doing well. We will try to increase his activity somewhat. He is free of chest discomfort or complaints related to palpitations. He continues with a bladder catheter which is going to need to be addressed at some point. He had some bladder outlet obstruction which prompted catheter placement. Likely we will need to have urology see the patient in the next several days. Exam (Progress Note) - Constitutional Vitals: Period Temp Pulse Resp BP Sys/Masters Pulse Ox Last 24 Hr 97.1 F-98.0 F 69-85 18-20 119-137/71-88 94-98 Exam: General:no acute distress. alert and oriented, mood and affect are normal HEENT: no new lesions, sclerae are clear, mouth and pharynx benign Neck: supple, trachea midline, no JVD noted Lungs: no rales ronchi or wheeze is noted. pt comfortable without accesory muscle use to assist with breathing CV: Irregularly irregular RR no murmur rub or gallop is noted. Abd: soft and nontender, BSNA, no masses. Ext: no cyanosis, clubbing or edema Neuro: grossly intact without focal neurologic deficit. Result/EKG - Labs CBC & BMP: 06/02/17 06:41 06/04/17 06:39 Labs: Laboratory Results - last 24 hr 06/03/17 06/03/17 06/03/17 08:14 11:46 15:23 Sodium Potassium Chloride Carbon Dioxide Anion Gap BUN Creatinine GFR Calculation BUN/Creatinine Ratio Glucose POC Glucose 153 H 151 H 141 H Calculated Osmolality Calcium 06/03/17 06/04/17 20:41 06:39 Sodium 139 Potassium 4.1 Chloride 101 Carbon Dioxide 32 Anion Gap 10.1 BUN 25 H Creatinine 1.80 H GFR Calculation 39 BUN/Creatinine Ratio 13.00 Glucose 47 L POC Glucose 81 Calculated Osmolality 277.5 Calcium 8.9
[2017-06-04] MEDS: PANTOPRAZOLE 40 MG TABLET PO SCH (08:59)
[2017-06-04] MEDS: DILTIAZEM CD 240 MG CAPSULE PO SCH (08:59)
[2017-06-04] MEDS: LISINOPRIL/HCTZ 20-25 MG TABLET PO SCH (08:59)
[2017-06-04] MEDS: METOPROLOL TARTRATE 50 MG TABLET PO SCH ×2 (08:59→21:34)
[2017-06-04] MEDS: FUROSEMIDE 20 MG TABLET PO SCH (08:59)
[2017-06-04] MEDS: ASPIRIN EC 81 MG TABLET PO SCH (08:59)
[2017-06-04] MEDS: MULTIVITAMIN (CENTRUM) TABLET PO SCH (08:59)
[2017-06-04] MEDS: glyBURIDE/METFORMIN 5-500 MG TABLET PO SCH ×2 (08:59→17:37)
[2017-06-04] MEDS: FERROUS SULFATE ER 140 MG TABLET PO SCH (08:59)
--- NOTE | 2017-06-04 11:23 | Event Note ---
Patient is doing well. Status post right fourth toe amputation. Yesterday he had a little bit of bleeding from an arterial on the medial aspect of the wound. That has resolved. The wound appears clean and healthy. There is no slough exudate or any nonviable tissue. Continue local wound care. Should be ready for discharge soon.
--- NOTE | 2017-06-04 13:29 | Internal Med Progress Note ---
Assessment and Plan (1) Atrial fibrillation Status: Chronic Current Visit: Yes Qualifiers: Atrial fibrillation type: chronic Qualified Code(s): I48.2 - Chronic atrial fibrillation (2) Osteomyelitis right fourth toe Status: Acute Current Visit: Yes (3) Diabetes Status: Chronic Current Visit: Yes Qualifiers: Diabetes mellitus type: type 2 Diabetes mellitus complication status: with skin complications Diabetes mellitus complication detail: with foot ulcer Diabetes mellitus alf insulin use: without alf use Qualified Code( s): E11.621 - Type 2 diabetes mellitus with foot ulcer; L97.509 - Non-pressure chronic ulcer of other part of unspecified foot with unspecified severity Internal Medicine - PN: Subj Interval history: This is an 87 year old male with history of DM, HTN, chronic atrial fibrillation , who presented to ER with infected right 4th toe. He was found to have osteomyelitis and is now status post amputation of that toe. He is doing well, and denied pain when seen. He had dressing change today right foot, and is doing better today. Exam (Progress Note) - Constitutional Vitals: Period Temp Pulse Resp BP Sys/Masters Pulse Ox Last 24 Hr 96.5 F-98.3 F 69-80 18-20 119-137/71-88 94-98 General appearance: no acute distress - Respiratory Respiratory exam: Present: clear to auscultation bilaterally - Cardiovascular Cardiovascular exam: Present: regular rate and rhythm - GI/Abdominal GI/Abdominal exam: Present: soft. Absent: tenderness - Extremities Exam Extremities exam: Absent: edema - Neurological Exam Neurological exam: Present: alert - Psychiatric Psychiatric exam: Present: normal mood - Skin Skin exam: Present: warm, dry Results - Labs CBC & BMP: 06/02/17 06:41 06/04/17 06:39
[2017-06-04] MEDS: ATORVASTATIN 10 MG TABLET PO SCH (21:34)
[2017-06-05] MEDS: CEFTAROLINE 400 MG in SODIUM CHLORIDE 0.9% 100 ML IV SCH (03:50)
[2017-06-05 05:33] LABS: Basophils # 0.1 10*3/uL (0.0-0.2); Basophils % 0.4 % (0.0-0.8); Eosinophils # 0.4 10*3/uL (0.0-0.87); Hematocrit 40.1 VOL% (42.0-52.0); Hemoglobin 14.1 GM/DL (14.0-18.0); Immature Granulocytes % 0.4 %; Immature Granulocytes Absolute 0.06 #; Lymphocytes # 5.4 10*3/uL (1.4-4.0); Mean Corpuscular HGB Conc 35.2 GM/DL (32-36); Mean Corpuscular Hemoglobin 32 PG (27-34); Mean Corpuscular Volume 89.7 FL (87-102); Mean Platelet Volume 10.7 FL (9.6-12.0); Monocytes # 0.9 10*3/uL (0.11-0.8); Monocytes % 6.4 % (1.7-12.7); Neutrophils # 6.7 10*3/uL (1.4-7.4); Neutrophils % 49.8 % (38.7-73.9); Platelet Count 328 T/CUMM (130-400); Red Blood Count 4.47 MC/CUMM (3.8-5.5); Red Cell Distribution Width 13.2 % (9.3-17.3); White Blood Count 13.6 T/CUMM (4-12)
[2017-06-05 06:01] LABS: Albumin 3.1 G/DL (3.4-5.0); Bilirubin,Total 1.1 MG/DL (0.2-1.0); Calcium 8.9 MG/DL (8.5-10.1); Osmolality,Calculated 272.1 MOS/KG (273-304); Potassium 4.2 MMOL/L (3.5-5.1); Total Protein 6.3 G/DL (6.4-8.3)
[2017-06-05] MEDS: MORPHINE 2 MG/1 ML SYRINGE IV PRN (06:10)
[2017-06-05] MEDS: METOPROLOL TARTRATE 50 MG TABLET PO SCH ×2 (08:57→20:31)
[2017-06-05] MEDS: DILTIAZEM CD 240 MG CAPSULE PO SCH (08:57)
[2017-06-05] MEDS: ASPIRIN EC 81 MG TABLET PO SCH (08:57)
[2017-06-05] MEDS: MULTIVITAMIN (CENTRUM) TABLET PO SCH (08:58)
[2017-06-05] MEDS: FERROUS SULFATE ER 140 MG TABLET PO SCH (08:58)
[2017-06-05] MEDS: FUROSEMIDE 20 MG TABLET PO SCH (08:58)
[2017-06-05] MEDS: PANTOPRAZOLE 40 MG TABLET PO SCH (08:59)
[2017-06-05] MEDS: INSULIN REGULAR 100 UNIT/ML SUBCUT SCH ×4 (08:59→20:41)
[2017-06-05] MEDS: LISINOPRIL/HCTZ 20-25 MG TABLET PO SCH (08:59)
[2017-06-05] MEDS: glyBURIDE/METFORMIN 5-500 MG TABLET PO SCH ×2 (08:59→16:14)
--- NOTE | 2017-06-05 09:28 | Event Note ---
General Surgery Progress Note Chief complaint This patient is an 87 year old man admitted with right 4th toe infection treated with antibiotics and right 4th toe ray amputation on 06/02/2017 Interval history No events over the weekend. Had 1/2 blood cultures positive with staph epi but cultures from toe grew MRSA and citrobacter. All of these organisms are sensitive to ciprofloxacin. Physical exam AF, VSS NAD, resting in bed Right 4th toe wound with decreased erythema, no purulence, tissues look healthy and good granulation tissue beginning Labs reviewed, WBC 13,000 Imaging none new Assessment and plan Changed to oral ciprofloxacin today Okay for discharge home with home health follow-up with Dr. Dumont in one week for wound check I will continue to follow the patient while he is in house
[2017-06-05] MEDS: CIPROFLOXACIN 500 MG TABLET PO SCH ×2 (10:52→20:39)
--- NOTE | 2017-06-05 13:15 | Discharge Summary ---
Hospital Course - Hospital Course Hospital Course: Patient came in with diabetic foot infection of the right fourth toe. He has a history of diabetes, hypertension atrial fibrillation and he was found to have osteomyelitis of the toe and is now status post amputation. He is doing quite well the toe area looks good. He is currently on antibiotics for MRSA and will going to discharge him either today or tomorrow on appropriate antibiotic therapy. He is having a little difficulty with voiding since we took his catheter out and has now required a do not cath. He had an ultrasound which revealed approximately 800 cc residual. We are going to start him on Flomax and get a urology consult as has been done. Nonetheless he is doing quite well going continue on his home medicines and if okay with urology will continue the Flomax. Plan on seeing him in my office in 1-2 weeks 06/06/2017 please add this addendum:Patient came in with diabetic foot infection of the right fourth toe. He has a history of diabetes, hypertension atrial fibrillation and he was found to have osteomyelitis of the toe and is now status post amputation. He is doing quite well the toe area looks good. He is currently on antibiotics for MRSA and will going to discharge him either today or tomorrow on appropriate antibiotic therapy. He is having a little difficulty with voiding since we took his catheter out and has now required a do not cath. He had an ultrasound which revealed approximately 800 cc residual. We are going to start him on Flomax and get a urology consult as has been done. Nonetheless he is doing quite well going continue on his home medicines and if okay with urology will continue the Flomax. Plan on seeing him in my office in 1-2 weeks Specialty Discharge - Follow Up or Referrals Follow up with: Elie Garcia MD [Physician] - 06/22/17 2:45 pm Amandeep Cordova DO [Primary Care Provider] - 06/16/17 9:15 am Randy Santana MD [Physician] - (as rx'd ) Discharge Plan - Discharge Data Disposition: Disch To Home/Self Care Condition at Discharge: Stable Discharge Diet: diabetic diet Activity: increase activity as tolerated, other (per surgery) Hygiene: no restrictions Weight Bearing at Discharge: weight bear as tolerated Driving: not until seen by doctor Contact your physician if you experience:: fever over 101, Redness or swelling, pain uncontrolled by pain medications Wound / Dressing Care Instructions: per wound care - Discharge Medications New Ciprofloxacin Tab [Cipro Tab] 500 mg PO Q12HR #24 tablet Continue Lisinopril/Hctz 20-25 [Prinzide 20-25] 1 tablet PO QAM Furosemide 20 mg PO QAM Aspirin EC Tab 81 mg PO QAM Metoprolol Tartrate 50 mg PO BID Atorvastatin [Lipitor] 10 mg PO QAM Iron 18 mg PO QAM Multivit-Mins/Iron/Folic/Lycop [Centrum Men's Tablet] 1 each PO QAM Glyburide/Metformin HCl [Glyburide-Metformin 5-500 mg] 1 tablet PO BID W/ MEALS dilTIAZem HCl [Diltiazem ER (24 hr)] 240 mg PO QAM Cyanocobalamin (Vitamin B-12) [Vitamin B-12] 500 mcg PO DAILY - Follow Up or Referral Follow Up: Elie Garcia MD [Physician] - 06/22/17 2:45 pm Amandeep Cordova DO [Primary Care Provider] - 06/16/17 9:15 am Randy Santana MD [Physician] - (as rx'd ) - Forms/Instructions Instructions: Ciprofloxacin (By mouth), Tamsulosin (By mouth), Hand Hygiene (DC ) Additional Discharge Instructions: follow up with wound care clinic as rx'd and with surgeon as rx'd Exam - Constitutional Vitals: Period Temp Pulse Resp BP Sys/Masters Pulse Ox Last 24 Hr 97.6 F-98.9 F 70-84 18-20 118-148/68-86 91-97 Discharge Results Procedures and tests throughout hospitalization: Pending Orders 06/01/17 10:24 Blood Culture Stat Labs on day of discharge: Labs from last 24 hours 06/05/17 06/05/17 06/05/17 10:56 07:21 04:34 WBC RBC Hgb Hct MCV MCH MCHC RDW Plt Count MPV Neut % (Auto) Lymph % (Auto) [place] % (Auto) Eos % (Auto) Baso % (Auto) Neut # (Auto) Lymph # (Auto) [place] # (Auto) Eos # (Auto) Baso # (Auto) Immature Gran % Nucleated RBC % Immature Gran # Nucleated RBCs # Immature Plt Fraction Sodium 135 L Potassium 4.2 Chloride 98 Carbon Dioxide 29 Anion Gap 12.2 BUN 20 H Creatinine 1.60 H GFR Calculation 45 BUN/Creatinine Ratio 12.00 Glucose 100 POC Glucose 192 H 94 Calculated Osmolality 272.1 L Calcium 8.9 Total Bilirubin 1.10 H AST 17 ALT 13 L Alkaline Phosphatase 77 Total Protein 6.3 L Albumin 3.1 L Globulin 3.2 Albumin/Globulin Ratio 0.9 L 06/05/17 06/04/17 06/04/17 04:34 20:31 16:02 WBC 13.6 H RBC 4.47 Hgb 14.1 Hct 40.1 L MCV 89.7 MCH 32 MCHC 35.2 RDW 13.2 Plt Count 328 MPV 10.7 Neut % (Auto) 49.8 Lymph % (Auto) 40.0 [place] % (Auto) 6.4 Eos % (Auto) 3.0 Baso % (Auto) 0.4 Neut # (Auto) 6.7 Lymph # (Auto) 5.4 H [place] # (Auto) 0.9 H Eos # (Auto) 0.4 Baso # (Auto) 0.1 Immature Gran % 0.4 Nucleated RBC % 0.0 Immature Gran # 0.06 Nucleated RBCs # 0.00 Immature Plt Fraction 0.0 Sodium Potassium Chloride Carbon Dioxide Anion Gap BUN Creatinine GFR Calculation BUN/Creatinine Ratio Glucose POC Glucose 137 H 151 H Calculated Osmolality Calcium Total Bilirubin AST ALT Alkaline Phosphatase Total Protein Albumin Globulin Albumin/Globulin Ratio Preliminary micro results at discharge 06/01/17 10:24 Blood Culture - Preliminary Blood No growth at 3 days DS: Provider Date of admission: 06/01/17 11:47 Primary care physician: Amandeep Cordova DO Attending physician on admission: Amandeep Cordova DO Consults: 06/01/17 12:33 Consult to Pharmacy [CONS] Routine Reason for Pharmacy Consult: Dose/Manage Antibiotics 06/01/17 14:44 Consult to Anesthesiology [CONS] Routine Consulting Provider: Reason for Anesthesiology: Pre-op Clearance 06/01/17 14:51 Consult to Physician [CONS] Routine Comment: Consulting Provider: Durga Dumont Person Notified: CHALO Date Notified: 06/01/17 Time Notified: 14:53 06/02/17 05:17 Consult to Physician [CONS] Routine Comment: Consulting Provider: Cardiology - [facility] Person Notified: MD willams Date Notified: 06/02/17 Time Notified: 08:00 06/02/17 10:53 Consult to Physical Therapy [CONS] Routine Reason for Physical Therapy: Gait Training Consult Comment: WB right heel, walker for home 06/05/17 09:30 Consult to Case Mgmt/Social Srvs [CONS] Routine Reason for Case Mgmt/Social Srvs: Home Health Consult Comment: wound care right fourth toe 06/05/17 09:41 Consult to Physician [CONS] Routine Comment: urinary retention Consulting Provider: Elie Garcia Consult to Specialist Group: Urology When should Consulting Provider be notified: Now Person Notified: daryl Date Notified: 06/05/17 Time Notified: 10:04 Consult Notification Comment: 06/05/17 13:09 Consult to Case Mgmt/Social Srvs [CONS] Routine Reason for Case Mgmt/Social Srvs: Discharge Planning Home Health Discharging clinician: Amandeep Cordova DO
--- NOTE | 2017-06-05 13:40 | Cardiology Progress Note ---
Eriberto Abad April RN, am scribing for, and in the presence of, Adam Keyes MD 13:38. Assessment and Plan (1) Atrial fibrillation Status: Chronic Assessment and plan: He is on Lopressor and Cardizem for rate control. He is not anticoagulated due to history of GI bleed. He does take a baby aspirin every day. This remained stable. Current Visit: Yes Qualifiers: Atrial fibrillation type: paroxysmal Qualified Code(s): I48.0 - Paroxysmal atrial fibrillation (2) Diabetes Status: Chronic Assessment and plan: Family medicine is following. 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 He denies any known bleeding at this time. Current Visit: No (4) Hypertension Status: Chronic Assessment and plan: His blood pressures been stable, will continue to monitor. Current Visit: No (5) Osteomyelitis right fourth toe Status: Acute Assessment and plan: Right fourth toe amputation by Dr. Dumont June 02. Current Visit: Yes Cardiology - PN: Subj Interval history: History of present illness: Air Intelligence Officer: Dr. Keyes PCP: Dr. Cordova Summary: Mr. Verdin is a 87 year old male who is routinely followed by Dr. Keyes with a history of paroxysmal atrial fibrillation, hypertension, NIDDM, mitral regurgitation, and GI bleed. 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 He does take a baby aspirin every day. Echo done in Dr. Keyes's office November 30, 2016 with ejection fraction of 35% and moderate mitral regurgitation. Stress test done July 25, 2016 was negative. Surgical history includes bilateral cataracts, appendectomy, and tonsillectomy. He denies any known family history. He reports he is a lifetime non-smoker. Mr. Verdin was transferred to the emergency room from the wound care clinic for further evaluation of right foot infection June 01. Dr. Dumont saw him in consultation and has a right fourth toe amputation scheduled for today (June 02). EKG on admission showed atrial fibrillation with PVCs, heart rate of 74. Last night he had an episode of atrial fibrillation with heart rates in the 40s, and cardiology has been asked to evaluate. He was unaware that his heart rate was low and had no symptoms during that time. He denies having had any chest pain, shortness of breath, palpitations, or dizziness. He denies any episodes of syncope or near syncope. June 05, 2017: Mr. Verdin is day 3 status post right fourth toe amputation by Dr. Dumont. He denies any chest pain or shortness of breath. classroom monitor currently shows atrial fibrillation with frequent. Blood pressures have been stable. He did have some issues with urinary retention over the weekend and required a Hyman catheter. Hyman catheter still present this morning. We will consult urology to evaluate. Patient personally interviewed and examined and I have reviewed the note and information. I discussed this patient with Maggy Wei RN. The patient is stable from a cardiac standpoint without any new changes. From our standpoint he is stable to go home. No new recommendations. Exam (Progress Note) - Constitutional Vitals: Period Temp Pulse Resp BP Sys/Masters Pulse Ox Last 24 Hr 97.6 F-98.9 F 70-82 18-20 124-148/72-86 95-97 General appearance: normal weight, no acute distress - Head Head exam: Absent: abrasion, hematoma - Eye Eye exam: Absent: periorbital swelling, laceration to eyelids - Neck Neck exam: Absent: tenderness - Respiratory Respiratory exam: Present: clear to auscultation bilaterally. Absent: accessory muscle use, chest wall tenderness - Cardiovascular Cardiovascular exam: Present: regular rate and rhythm. Absent: bradycardia, systolic murmur, tachycardia - GI/Abdominal GI/Abdominal exam: Present: normal bowel sounds, soft. Absent: distended, tenderness - Extremities Exam Extremities exam: Present: other (Dressing to right foot). Absent: edema - Neurological Exam Neurological exam: Present: alert, oriented X3 - Psychiatric Psychiatric exam: Present: normal affect, normal mood - Skin Skin exam: Present: warm, dry Result/EKG - Labs CBC & BMP: 06/05/17 04:34 08/07/17 04:34 Lab Results: I have reviewed the past 24 hour labs Labs: Laboratory Results - last 24 hr 06/04/17 06/04/17 06/04/17 12:02 16:02 20:31 WBC RBC Hgb Hct MCV MCH MCHC RDW Plt Count MPV Neut % (Auto) Lymph % (Auto) [place] % (Auto) Eos % (Auto) Baso % (Auto) Neut # (Auto) Lymph # (Auto) [place] # (Auto) Eos # (Auto) Baso # (Auto) Immature Gran % Nucleated RBC % Immature Gran # Nucleated RBCs # Immature Plt Fraction Sodium Potassium Chloride Carbon Dioxide Anion Gap BUN Creatinine GFR Calculation BUN/Creatinine Ratio Glucose POC Glucose 165 H 151 H 137 H Calculated Osmolality Calcium Total Bilirubin AST ALT Alkaline Phosphatase Total Protein Albumin Globulin Albumin/Globulin Ratio 06/05/17 06/05/17 06/05/17 04:34 04:34 07:21 WBC 13.6 H RBC 4.47 Hgb 14.1 Hct 40.1 L MCV 89.7 MCH 32 MCHC 35.2 RDW 13.2 Plt Count 328 MPV 10.7 Neut % (Auto) 49.8 Lymph % (Auto) 40.0 [place] % (Auto) 6.4 Eos % (Auto) 3.0 Baso % (Auto) 0.4 Neut # (Auto) 6.7 Lymph # (Auto) 5.4 H [place] # (Auto) 0.9 H Eos # (Auto) 0.4 Baso # (Auto) 0.1 Immature Gran % 0.4 Nucleated RBC % 0.0 Immature Gran # 0.06 Nucleated RBCs # 0.00 Immature Plt Fraction 0.0 Sodium 135 L Potassium 4.2 Chloride 98 Carbon Dioxide 29 Anion Gap 12.2 BUN 20 H Creatinine 1.60 H GFR Calculation 45 BUN/Creatinine Ratio 12.00 Glucose 100 POC Glucose 94 Calculated Osmolality 272.1 L Calcium 8.9 Total Bilirubin 1.10 H AST 17 ALT 13 L Alkaline Phosphatase 77 Total Protein 6.3 L Albumin 3.1 L Globulin 3.2 Albumin/Globulin Ratio 0.9 L - Impressions Impressions: Telemetry continues to reveal atrial fibrillation with occasions of frequent PVCs appear to be unifocal. There is no significant bradycardia. - EKG EKG results: interpreted by me EKG shows: sinus rhythm (With PVCs) Specialty Discharge - Follow Up or Referrals Follow up with: Amandeep Cordova DO [Primary Care Provider] - 2 Weeks Randy Santana MD [Physician] - (as rx'd ) I, Adam Keyes MD, personally performed the services described in this documentation, ascribed by Maggy Wei RN in my presence, and it is both accurate and complete 339 .
[2017-06-05] MEDS: TAMSULOSIN 0.4 MG CAPSULE PO SCH (16:13)
--- NOTE | 2017-06-05 18:55 | Urology Consultation ---
Assessment and Plan - Time spent with patient Time spent with patient: Less than 30 minutes (1) BPH loc w urin obs/LUTS Status: Acute Assessment and plan: We will continue the Flomax. A prescription was written. He is voiding better. He can be cath as needed. I will make him appointment see me in 3 weeks. Current Visit: Yes History of Present Illness - Data of Consult Patient: new to practice Consult date: 06/05/17 Requesting Physician: Amandeep Cordova - Consult Narrative Reason for consult: BPH with urinary retention History of present illness: Mr. Verdin is a 87 year old male who was admitted for removal of the toe. He is a diabetic. I used to see the patient regularly. I last saw him 7 years ago. He was not having voiding problems at that time but had a elevated PSA then. And then he failed to keep his appointments. He is now in the hospital and urine retention. He had 900 cc residual. He has been cathed a few times. He is being placed on Flomax. In seeing him now he says he voids better and had a good void. He feels better. Prior to this surgery he says he voided well and was not getting up at night. Had no history of infections etc. I recommended we cathing as needed. We will continue Flomax. Prescription was written. I will make him an appointment see me in 3 weeks. CC: Amandeep Cordova, DO - Home Medications and Allergies Home Medications: Home Medications Medication Instructions Recorded Confirmed Type Aspirin EC Tab 81 mg PO QAM 06/01/17 06/01/17 History Atorvastatin [Lipitor] 10 mg PO QAM 06/01/17 06/01/17 History Cyanocobalamin (Vitamin B-12) 500 mcg PO DAILY 06/01/17 06/01/17 History [Vitamin B-12] Furosemide 20 mg PO QAM 06/01/17 06/01/17 History Glyburide/Metformin HCl 1 tablet PO BID W/MEALS 06/01/17 06/01/17 History [Glyburide-Metformin 5-500 mg] Iron 18 mg PO QAM 06/01/17 06/01/17 History Lisinopril/Hctz 20-25 [Prinzide 1 tablet PO QAM 06/01/17 06/01/17 History 20-25] Metoprolol Tartrate 50 mg PO BID 06/01/17 06/01/17 History Multivit-Mins/Iron/Folic/Lycop 1 each PO QAM 06/01/17 06/01/17 History [Centrum Men's Tablet] dilTIAZem HCl [Diltiazem ER (24 240 mg PO QAM 06/01/17 06/01/17 History hr)] Ciprofloxacin Tab [Cipro Tab] 500 mg PO Q12HR #24 tablet 06/05/17 Rx Allergies/Adverse Reactions: Allergies Allergy/AdvReac Type Severity Reaction Status Date / Time apixaban [From Eliquis] AdvReac Severe bleeding Verified 01/09/17 15:06 Exam - Constitutional Vitals: Period Temp Pulse Resp BP Sys/Masters Pulse Ox Last 24 Hr 97.6 F-98.9 F 70-84 18-20 118-148/68-86 91-97 Results - Labs CBC & BMP: 06/05/17 04:34 06/05/17 04:34 Specialty Discharge - Follow Up or Referrals Follow up with: Amandeep Cordova DO [Primary Care Provider] - 06/16/17 9:15 am Randy Santana MD [Physician] - (as rx'd )
[2017-06-05] MEDS: ATORVASTATIN 10 MG TABLET PO SCH (20:31)
--- NOTE | 2017-06-06 07:32 | Discharge Summary ---
Hospital Course - Hospital Course Hospital Course: Patient came in with diabetic foot infection of the right fourth toe. He has a history of diabetes, hypertension atrial fibrillation and he was found to have osteomyelitis of the toe and is now status post amputation. He is doing quite well the toe area looks good. He is currently on antibiotics for MRSA and will going to discharge him either today or tomorrow on appropriate antibiotic therapy. He is having a little difficulty with voiding since we took his catheter out and has now required a do not cath. He had an ultrasound which revealed approximately 800 cc residual. We are going to start him on Flomax and get a urology consult as has been done. Nonetheless he is doing quite well going continue on his home medicines and if okay with urology will continue the Flomax. Plan on seeing him in my office in 1-2 weeks Specialty Discharge - Follow Up or Referrals Follow up with: Amandeep Cordova DO [Primary Care Provider] - 06/16/17 9:15 am Randy Santana MD [Physician] - (as rx'd ) Discharge Plan - Discharge Data Disposition: Disch To Home/Self Care - Discharge Medications New Ciprofloxacin Tab [Cipro Tab] 500 mg PO Q12HR #24 tablet Continue Lisinopril/Hctz 20-25 [Prinzide 20-25] 1 tablet PO QAM Furosemide 20 mg PO QAM Aspirin EC Tab 81 mg PO QAM Metoprolol Tartrate 50 mg PO BID Atorvastatin [Lipitor] 10 mg PO QAM Iron 18 mg PO QAM Multivit-Mins/Iron/Folic/Lycop [Centrum Men's Tablet] 1 each PO QAM Glyburide/Metformin HCl [Glyburide-Metformin 5-500 mg] 1 tablet PO BID W/ MEALS dilTIAZem HCl [Diltiazem ER (24 hr)] 240 mg PO QAM Cyanocobalamin (Vitamin B-12) [Vitamin B-12] 500 mcg PO DAILY - Follow Up or Referral Follow Up: Amandeep Cordova DO [Primary Care Provider] - 06/16/17 9:15 am Randy Santana MD [Physician] - (as rx'd ) - Forms/Instructions Instructions: Ciprofloxacin (By mouth) Exam - Constitutional Vitals: Period Temp Pulse Resp BP Sys/Masters Pulse Ox Last 24 Hr 97.5 F-97.8 F 73-97 14-20 100-143/57-73 91-97 Discharge Results Procedures and tests throughout hospitalization: Pending Orders 06/01/17 10:24 Blood Culture Stat Labs on day of discharge: Labs from last 24 hours 06/05/17 06/05/17 06/05/17 19:17 10:56 07:21 POC Glucose 93 192 H 94 Preliminary micro results at discharge 06/01/17 10:24 Blood Culture - Preliminary Blood No growth at 3 days DS: Provider Date of admission: 06/01/17 11:47 Primary care physician: Amandeep Cordova DO Attending physician on admission: Amandeep Cordova DO Consults: 06/01/17 12:33 Consult to Pharmacy [CONS] Routine Reason for Pharmacy Consult: Dose/Manage Antibiotics 06/01/17 14:44 Consult to Anesthesiology [CONS] Routine Consulting Provider: Reason for Anesthesiology: Pre-op Clearance 06/01/17 14:51 Consult to Physician [CONS] Routine Comment: Consulting Provider: Durga Dumont Person Notified: CHALO Date Notified: 06/01/17 Time Notified: 14:53 06/02/17 05:17 Consult to Physician [CONS] Routine Comment: Consulting Provider: Cardiology - [facility] Person Notified: MD willams Date Notified: 06/02/17 Time Notified: 08:00 06/02/17 10:53 Consult to Physical Therapy [CONS] Routine Reason for Physical Therapy: Gait Training Consult Comment: WB right heel, walker for home 06/05/17 09:30 Consult to Case Mgmt/Social Srvs [CONS] Routine Reason for Case Mgmt/Social Srvs: Home Health Consult Comment: wound care right fourth toe 06/05/17 09:41 Consult to Physician [CONS] Routine Comment: urinary retention Consulting Provider: Elie Garcia Consult to Specialist Group: Urology When should Consulting Provider be notified: Now Person Notified: daryl Date Notified: 06/05/17 Time Notified: 10:04 Consult Notification Comment: 06/05/17 13:09 Consult to Case Mgmt/Social Srvs [CONS] Routine Reason for Case Mgmt/Social Srvs: Discharge Planning Home Health Discharging clinician: Amandeep Cordova DO
[2017-06-06] MEDS: ASPIRIN EC 81 MG TABLET PO SCH (08:59)
[2017-06-06] MEDS: METOPROLOL TARTRATE 50 MG TABLET PO SCH (08:59)
[2017-06-06] MEDS: DILTIAZEM CD 240 MG CAPSULE PO SCH (08:59)
[2017-06-06] MEDS: TAMSULOSIN 0.4 MG CAPSULE PO SCH (08:59)
[2017-06-06] MEDS: MULTIVITAMIN (CENTRUM) TABLET PO SCH (08:59)
[2017-06-06] MEDS: CIPROFLOXACIN 500 MG TABLET PO SCH (08:59)
[2017-06-06] MEDS: FERROUS SULFATE ER 140 MG TABLET PO SCH (09:00)
[2017-06-06] MEDS: glyBURIDE/METFORMIN 5-500 MG TABLET PO SCH (09:00)
[2017-06-06] MEDS: FUROSEMIDE 20 MG TABLET PO SCH (09:00)
[2017-06-06] MEDS: PANTOPRAZOLE 40 MG TABLET PO SCH (09:01)
[2017-06-06] MEDS: LISINOPRIL/HCTZ 20-25 MG TABLET PO SCH (09:01)
[2017-06-06] MEDS: INSULIN REGULAR 100 UNIT/ML SUBCUT SCH ×2 (09:03→12:59)
--- NOTE | 2017-06-06 09:32 | Event Note ---
General Surgery Progress Note Chief complaint This patient is an 87 year old man admitted with right 4th toe infection treated with antibiotics and right 4th toe ray amputation on 06/02/2017 Interval history No events overnight. Scheduled for discharge today. Physical exam AF, VSS NAD, resting in bed Right 4th toe wound with stable erythema, no purulence, tissues look healthy and good granulation tissue Labs None Imaging none new Assessment and plan continue oral ciprofloxacin on discharge for 7 days post-discharge follow-up in clinic in 1 week continue wound care and home health
--- NOTE | 2017-06-06 11:16 | Pathology Report from [facility] ---
[facility] – [place], [place] ACCESSION # : [id number] PATIENT NAME : Ryder Lim V. ORDERING DR : Durga Dumont MD CLINICAL HX: Right 4th toe infection with osteomyelitis POST-OP DX: Same SPECIMEN INFO: 4th right toe GROSS DESCRIPTION: The specimen is received in formalin labeled with the patients name and consists of a toe and distal metatarsal measuring 5.4 x 1.8 x 3.2 cm with a partially 1.5 x 0.8 cm ulcerated scab-like area beside the toenail. There is also a 1.5 x 1.1 cm erythematous ulcerated area on the medial side of the toe. Also in the container is a 2.0 x 1.4 x 1.0 cm erythematous fragment of bone and subcutaneous tissue. A brewery representative section of ulcerated tissue and bone submitted in one cassette following decalcification. DIAGNOSIS FOR RYDER LIM: 4th RIGHT TOE, AMPUTATION: Ulceration, acute osteoarthritis. COLLECTED DATE: 06/02/2017 [facility] – [place], [place] REPORT DATE: 06/05/2017 ELECTRONICALLY SIGNED BY: Cinthia Lockhart M.D. 06/05/2017 - 10:48:21 [place]
[2017-06-06 12:27] VITALS: BP 109/67
== END 2017-06-06 14:00 | disposition home health service (06) | DRG 617 ==
LOC: N.ED 09:21 → N.EDINP 11:47 → N.5E 13:29
PROVIDERS: ADMIT Family Medicine; ATTEND Family Medicine